=== PATIENT | male | born 1945 | race Caucasian/White ===

== ENCOUNTER 2022-11-13 14:18 | Emergency (ER) | payer OTHER ==
[~2022-11-13] VITALS: Ht 162.6 cm; Wt 73.9 kg
[2022-11-13 14:58] VITALS: BP 118/63; PULSE 80; RESP 16; TEMP 97.7; O2SAT 98
[2022-11-13] MEDS ORDERED: IBUPROFEN 600 MG TAB PO ONE (15:40)
[2022-11-13 16:02] VITALS: BP 118/63; PULSE 80; RESP 16; TEMP 97.7; O2SAT 98
[2022-11-14] MEDS ORDERED: ACET15SO36 BOTH EARS (21:27)
[2022-11-14] MEDS ORDERED: AMOX1TAB8 PO (21:27)
[2022-11-14] MEDS ORDERED: SUD30 PO (21:27)
[2022-11-14] MEDS ORDERED: FLONAS NS (21:27)
[2022-11-14] MEDS ORDERED: DIPH25TA53 PO (21:27)
[2022-11-14] MEDS ORDERED: OFLO5SOL27 OT (21:29)
== END 2022-11-13 16:02 | disposition home or self-care (01) ==
LOC: MED 14:18
DX: S90.111A Contusion of right great toe without damage to nail, initial encounter (principal); V49.88XA Car occupant (driver) (passenger) injured in other specified transport accidents, initial encounter; Y93.89 Activity, other specified; Y92.89 Other specified places as the place of occurrence of the external cause; Y99.8 Other external cause status
CPT/HCPCS: 73660; 99283

== ENCOUNTER 2022-11-14 18:26 | Emergency (ER) | payer OTHER ==
[~2022-11-14] VITALS: Ht 162.6 cm; Wt 73.9 kg
[2022-11-14 19:08] VITALS: BP 137/76; PULSE 63; RESP 18; TEMP 98.3; O2SAT 97
[2022-11-14] MEDS ORDERED: AMOXIL/CLAVULANATE 875/125 MG 1 TAB PO ONE (20:55)
[2022-11-14] MEDS ORDERED: SUD30 PO (21:27)
[2022-11-14] MEDS ORDERED: DIPH25TA53 PO (21:27)
[2022-11-14] MEDS ORDERED: AMOX1TAB8 PO (21:27)
[2022-11-14] MEDS ORDERED: ACET15SO36 BOTH EARS (21:27)
[2022-11-14] MEDS ORDERED: FLONAS NS (21:27)
[2022-11-14] MEDS ORDERED: OFLO5SOL27 OT (21:29)
[2022-11-14 21:35] VITALS: BP 137/76; PULSE 63; RESP 18; TEMP 98.3; O2SAT 97
== END 2022-11-14 21:35 | disposition home or self-care (01) ==
LOC: MED 18:26
DX: H60.93 Unspecified otitis externa, bilateral (principal); J32.9 Chronic sinusitis, unspecified; L29.9 Pruritus, unspecified; I10 Essential (primary) hypertension; Z79.899 Other long term (current) drug therapy
CPT/HCPCS: 99283

== ENCOUNTER 2022-12-25 06:48 | Emergency (ER) | payer OTHER ==
[~2022-12-25] VITALS: Ht 162.6 cm; Wt 74.4 kg
[~2022-12-25 06:48] MED LIST: AMOX1TAB8 PO; DIPH25TA53 PO; FLONAS NS; OFLO5SOL27 OT; SUD30 PO
[2022-12-25 07:30] VITALS: BP 133/64; PULSE 68; RESP 16; TEMP 98.2; O2SAT 98
[2022-12-25 09:53] VITALS: BP 133/64; PULSE 68; RESP 16; TEMP 98.2; O2SAT 98
== END 2022-12-25 09:52 | disposition home or self-care (01) ==
LOC: MED 06:48
DX: B07.8 Other viral warts (principal); M25.571 Pain in right ankle and joints of right foot; I10 Essential (primary) hypertension; Z79.899 Other long term (current) drug therapy
CPT/HCPCS: 99281